=== PATIENT | male | born 1940 | race Caucasian/White ===

== ENCOUNTER 2017-07-05 05:49 | Outpatient (CLI) | payer MEDICARE, OTHER ==
[~2017-07-05] VITALS: Ht 180.3 cm; Wt 90.7 kg
--- NOTE | 2017-07-05 14:13 | History & Physical-Hospitalist ---
HPI History of Present Illness: Date Seen 07/05/17 Attending Physician Alicia Thorne MD PCP Dyllan Harkins MD Referring Physician Date of Admission Home Medications & Allergies Home Medications Reviewed patient Home Medication Reconciliation Form Physical Exam Physical Exam Vital Signs Capillary Refill : ALICIA THORNE MD Jul 05, 2017 14:13
[2017-07-05] MEDS ORDERED: LISI10TA2 PO (15:37)
--- NOTE | 2017-07-05 16:34 | HISTORY AND PHYSICAL ---
DATE OF SERVICE: DATE OF ADMISSION: 07/05/2017. COLONOSCOPY HISTORY AND PHYSICAL REQUESTING PHYSICIAN: Dr. Harkins. HISTORY OF PRESENT ILLNESS: The patient is a 76-year-old white male referred for surveillance colonoscopy due to past history of colon polyps as well as family history of a colon cancer. The index case being his mother, who he believes was diagnosed in her early 70s. He last underwent colonoscopy six years ago, at which time he reports several polyps were removed. He has no past history of cancer with a history of several colonoscopies since the age of 52. He reports that otherwise he feels well and voices no complaints. See below review of systems. PAST MEDICAL HISTORY: Significant for hypertension with no known history of cardiovascular or pulmonary disease. PAST SURGICAL HISTORY: He has had bilateral arthroscopic meniscal repair in the past. 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 He reports now for over 10 years, he has one drink, as I recall, a glass of wine per day, rarely more than that, meeting criteria for moderation. REVIEW OF SYSTEMS: GASTROINTESTINAL: He denies abdominal pain, constipation, diarrhea, dysphagia, hematemesis, heartburn, nausea, vomiting, melena or bright red blood per rectum. RESPIRATORY: He denies dyspnea on exertion, cough, orthopnea, shortness of breath, or hemoptysis. CARDIOVASCULAR: He denies chest pain, presyncope, syncope. History of vascular heart disease or previous history of intervention. Denies palpitations or peripheral edema. GENITOURINARY: He denies dysuria, increased urinary frequency, hematuria, incontinence or discharge. CONSTITUTIONAL: He denies chills, fever, weakness, or change in weight. PHYSICAL EXAMINATION: GENERAL: Reveals a well appearing white male in no acute distress. VITAL SIGNS: Blood pressure was 116/80 with a heart rate of 72 and regular, respiratory rate 16, nonlabored. HEENT: Unremarkable. Sclerae are nonicteric. NECK: Reveals no JVD, adenopathy or bruits. CHEST: Clear. CARDIOVASCULAR: Reveals a regular rate and rhythm without murmur, S3 or S4. ABDOMEN: Soft, supple without mass, organomegaly or tenderness. Bowel sounds are positive in all four quadrants. EXTREMITIES: Reveal no cyanosis, clubbing or edema. ASSESSMENT/PLAN: The patient was set up for surveillance colonoscopy due to family history of colon cancer and a past history of colon polyps on 07/08/2017. Prep instructions with [facility]-prep kit and scheduled for the procedure. He is advised to abstain from aspirin usage until after the procedure and is to hold ibuprofen for 48 hours prior to the procedure. I thank you for the referral of this pleasant gentleman. Job ID: [id number] DocumentID: [id number] Dictated Date: 07/05/2017 14:17:04 Brick Molder Hand Date: 07/05/2017 15:32:36 Dictated By: ALICIA THORNE MD
== END 2017-07-05 15:39 ==
LOC: PREOP 05:49
PROVIDERS: ATTEND Internal Medicine
DX: Z01.818 Encounter for other preprocedural examination (principal); Z86.010 Personal history of colon polyps; Z80.0 Family history of malignant neoplasm of digestive organs

== ENCOUNTER 2017-07-08 07:24 | Day surgery (SDC) | payer MEDICARE, OTHER ==
--- NOTE | 2017-07-05 16:34 | HISTORY AND PHYSICAL ---
DATE OF SERVICE: DATE OF ADMISSION: 07/08/2017. COLONOSCOPY HISTORY AND PHYSICAL REQUESTING PHYSICIAN: Dr. Harkins. HISTORY OF PRESENT ILLNESS: The patient is a 76-year-old white male referred for surveillance colonoscopy due to past history of colon polyps as well as family history of a colon cancer. The index case being his mother, who he believes was diagnosed in her early 70s. He last underwent colonoscopy six years ago, at which time he reports several polyps were removed. He has no past history of cancer with a history of several colonoscopies since the age of 52. He reports that otherwise he feels well and voices no complaints. See below review of systems. PAST MEDICAL HISTORY: Significant for hypertension with no known history of cardiovascular or pulmonary disease. PAST SURGICAL HISTORY: He has had bilateral arthroscopic meniscal repair in the past. 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 He reports now for over 10 years, he has one drink, as I recall, a glass of wine per day, rarely more than that, meeting criteria for moderation. REVIEW OF SYSTEMS: GASTROINTESTINAL: He denies abdominal pain, constipation, diarrhea, dysphagia, hematemesis, heartburn, nausea, vomiting, melena or bright red blood per rectum. RESPIRATORY: He denies dyspnea on exertion, cough, orthopnea, shortness of breath, or hemoptysis. CARDIOVASCULAR: He denies chest pain, presyncope, syncope. History of vascular heart disease or previous history of intervention. Denies palpitations or peripheral edema. GENITOURINARY: He denies dysuria, increased urinary frequency, hematuria, incontinence or discharge. CONSTITUTIONAL: He denies chills, fever, weakness, or change in weight. PHYSICAL EXAMINATION: GENERAL: Reveals a well appearing white male in no acute distress. VITAL SIGNS: Blood pressure was 116/80 with a heart rate of 72 and regular, respiratory rate 16, nonlabored. HEENT: Unremarkable. Sclerae are nonicteric. NECK: Reveals no JVD, adenopathy or bruits. CHEST: Clear. CARDIOVASCULAR: Reveals a regular rate and rhythm without murmur, S3 or S4. ABDOMEN: Soft, supple without mass, organomegaly or tenderness. Bowel sounds are positive in all four quadrants. EXTREMITIES: Reveal no cyanosis, clubbing or edema. ASSESSMENT/PLAN: The patient was set up for surveillance colonoscopy due to family history of colon cancer and a past history of colon polyps on 07/08/2017. Prep instructions with [facility]-prep kit given and colonoscopy scheduled. He is advised to abstain from aspirin usage until after the procedure and is to hold ibuprofen for 48 hours prior to the procedure. I thank you for the referral of this pleasant gentleman. Job ID: [id number] DocumentID: [id number] Dictated Date: 07/05/2017 14:17:04 Mannequin Molder Date: 07/05/2017 15:32:36 Dictated By: ALICIA THORNE MD [facility]
[~2017-07-08] VITALS: Ht 180.3 cm; Wt 90.7 kg
[~2017-07-08 07:24] MED LIST: LISI10TA2 PO
[2017-07-08 07:35] VITALS: BP 131/111
[2017-07-08] MEDS ORDERED: MIDAZOLAM 2 MG/2 ML (VERSED) VIAL IVP PRN (07:45)
[2017-07-08] MEDS ORDERED: LIDOCAINE JELLY 2% (XYLOCAINE) 5 ML TUBE MM PRN (07:45)
[2017-07-08] MEDS ORDERED: 1/2 NS IV SOLUTION 1,000 ML IV PRN (07:45)
--- NOTE | 2017-07-08 07:58 | Pre-Op Note & Conscious Sedat ---
Pre-Operative Progress Note H&P Reviewed The H&P was reviewed, patient examined and no changes noted. Date H&P Reviewed: Jul 08, 2017 Time H&P Reviewed: 07:58 Conscious Sedation Pre-Proced ASA Class: 2 Airway Mallampati Classification: ([place] appropriate class) I. II. III, IV Lungs Heart ASA score ASA 1: a normal healthy patient ASA 2: a patient with a mild systemic disease (mid diabetes, controlled hypertension, obesity ASA 3: a patient with a severe systemic disease that limits activity (angina , COPD, prior Myocardial infarction) ASA 4: a patient with an incapacitating disease that is a constant threat to life (CHF, renal failure) ASA 5: a moribund patient not expected to survive 24 hrs. (ruptured aneurysm) ASA 6: a declared brain patient whose organs are being harvested. For emergent operations, add the letter E after the classification Grade 2 Sedation Plan: Analgesia, Amnesia, Plan communicated to team members, Discussed options with patient/fam, Discussed risks with patient/fam Note The patient is an appropriate candidate to undergo the planned procedure, sedation, and anesthesia. The patient immediately re-assessed prior to indication. ALICIA THORNE MD Jul 08, 2017 07:58
[2017-07-08] MEDS: fentaNYL INJECTION 100 MCG/2 ML AMP IVP PRN ×2 (08:40→08:53)
[2017-07-08] MEDS ORDERED: MIDAZOLAM 2 MG/2 ML (VERSED) VIAL ONE ×2 (09:21→09:22)
[2017-07-08 09:45] VITALS: BP 132/90
[2017-07-08 10:05] VITALS: BP 136/94
--- NOTE | 2017-07-08 14:55 | OPERATIVE REPORT ---
DATE OF SERVICE: COLONOSCOPY SUMMARY The patient underwent diagnostic colonoscopy due to past history of colon cancer and a family history of colon polyps and due to past history of colon polyps and a family history of colon cancer. DESCRIPTION OF PROCEDURE: The patient was placed in the left lateral decubitus position. Prior to undergoing colonoscopy, digital rectal evaluation was performed. Anal sphincter tone was normal and the perianal reflexes intact. The prostate is mildly enlarged, anodular and nontender digital inspection. No abnormalities were noted to digital inspection of the anal canal or distal rectal vault. The colonoscope was then inserted into the rectum and under direct visualization advanced to the cecum. The cecum was identified by identification of the ileocecal valve cecal strap. Photographic documentation was obtained. A careful inspection was made as the colonoscope was withdrawn. FINDINGS: There was no evidence for internal or external hemorrhoids. The rectum was unremarkable. Mild diverticular disease was noted confined to the sigmoid colon. Present in the proximal sigmoid colon were two adjacent diminutive polyps, the smaller one was 1 mm in size, larger one 3 to 4 mm. Both were biopsied and cauterized with no blood loss. The descending colon, splenic flexure, transverse colon, hepatic flexure, ascending colon and cecum were unremarkable. ASSESSMENT: Two diminutive proximal sigmoid polyps with benign features were removed via hot forceps with no subsequent blood loss. Mild diverticular disease confined to the sigmoid colon was present without evidence for diverticulitis. Digital rectal evaluation was compatible with mild benign prostatic hypertrophy. No other abnormalities were noted on today's procedure. Considering family history as long as there are no surprises on histopathology report, would abdicating repeat surveillance colonoscopy in 5 years. I thank you for the referral of this pleasant gentleman. Job ID: [id number] DocumentID: [id number] Dictated Date: 07/08/2017 09:25:32 Keeper Helper Date: 07/08/2017 14:55:05 Dictated By: ALICIA THORNE MD [facility]
== END 2017-07-08 10:20 | disposition home or self-care (01) ==
LOC: ENDO 07:24
PROVIDERS: ATTEND Internal Medicine
DX: Z09 Encounter for follow-up examination after completed treatment for conditions other than malignant neoplasm (principal); D12.5 Benign neoplasm of sigmoid colon; K63.5 Polyp of colon; K57.20 Diverticulitis of large intestine with perforation and abscess without bleeding; I10 Essential (primary) hypertension; Z86.010 Personal history of colon polyps; Z80.0 Family history of malignant neoplasm of digestive organs; Z87.891 Personal history of nicotine dependence

== ENCOUNTER 2022-09-06 05:31 | Outpatient (CLI) | payer MEDICARE, OTHER ==
[~2022-09-06] VITALS: Ht 180.3 cm; Wt 93.4 kg
[~2022-09-06 05:31] MED LIST changes: -LISI10TA2 PO; +LISI10TA25 PO
[2022-09-06] MEDS ORDERED: ACET-2650 PO (12:19)
[2022-09-06] MEDS ORDERED: ASPI-1238 PO (12:19)
== END 2022-09-06 12:21 | disposition home or self-care (01) ==
LOC: PREOP 05:31
PROVIDERS: ATTEND Internal Medicine
DX: Z01.818 Encounter for other preprocedural examination (principal)

== ENCOUNTER 2022-09-24 08:19 | Day surgery (SDC) | payer MEDICARE, OTHER ==
--- NOTE | 2022-09-06 07:46 | HISTORY AND PHYSICAL ---
DATE OF SERVICE: 09/10/2022 COLONOSCOPY HISTORY AND PHYSICAL HISTORY OF PRESENT ILLNESS: The patient is a 81-year-old white male referred by Dr. Harkins for surveillance colonoscopy. He has past history of colon polyps, last performed colonoscopy 5 years ago, at which time he had a tubular adenoma removed from the proximal sigmoid colon. He does have family history of colon cancer, the index case is mother who was diagnosed at the age of 70. He denies bowel habit change, abdominal pain, bright red blood per rectum, melena or change in weight and has been feeling well. PAST MEDICAL HISTORY: Significant for hypertension with no known history of cardiovascular or pulmonary disease. He takes a baby aspirin for primary prevention and lisinopril 10 mg daily for hypertension, on no other medication. PAST SURGICAL HISTORY: He has had bilateral arthroscopic meniscal tear repair over 10 years ago. 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 He drinks one glass of wine 5 days a week on average. Rarely more. REVIEW OF SYSTEMS: CONSTITUTIONAL: Denies night sweats, chills, fever, or change in weight. GASTROINTESTINAL: As per HPI. RESPIRATORY: Denies cough, wheezing or shortness of breath. CARDIOVASCULAR: Denies chest pain, orthopnea, PND, pedal edema. PHYSICAL EXAMINATION: GENERAL: Reveals a well-appearing white male younger than his stated age. VITAL SIGNS: Blood pressure 120/80, weight 206 pounds. HEENT: Unremarkable. Sclerae nonicteric. CHEST: Clear to auscultation. CARDIOVASCULAR: Reveals a regular rate and rhythm without significant murmur, S3 or S4. ABDOMEN: Soft, supple without mass, organomegaly, or tenderness. EXTREMITIES: Revealed no cyanosis, clubbing or edema. ASSESSMENT AND PLAN: The patient is being set up for a surveillance colonoscopy due to past history of colon polyps and family history for colon cancer, index case being his mother diagnosed at the age of 70. Prep instructions were given. Questions were answered and electronic medical record was reviewed. I thank you for the referral of this pleasant gentleman. Job ID: [id number] DocumentID: [id number] Dictated Date: 09/02/2022 14:08:47 Crushing Foreman Date: 09/02/2022 14:27:00 Dictated By: ALICIA THORNE MD
[~2022-09-24] VITALS: Ht 180.3 cm; Wt 93.4 kg
[~2022-09-24 08:19] MED LIST changes: +ACET-2650 PO; +ASPI-1238 PO
[2022-09-24] MEDS ORDERED: LACTATED RINGERS 1,000 ML IV STA (08:21)
--- NOTE | 2022-09-24 08:28 | Pre-Op Note & Conscious Sedat ---
Pre-Operative Progress Note Date H&P Reviewed: Sep 24, 2022 Time H&P Reviewed: 08:27 History & Physical: H&P Reviewed, Patient Examed, No changes noted Pre-Op Diagnosis: hx of colon polyps and FH of colon cancer Moderate Sedation PreProcedure ASA Score 2 Airway Lungs Heart ASA score ASA 1: a normal healthy patient ASA 2: a patient with a mild systemic disease (mid diabetes, controlled hypertension, obesity ASA 3: a patient with a severe systemic disease that limits activity (angina, COPD, prior Myocardial infarction) ASA 4: a patient with an incapacitating disease that is a constant threat to life (CHF, renal failure) ASA 5: a moribund patient not expected to survive 24 hrs. (ruptured aneurysm) ASA 6: a declared brain- patient whose organs are being harvested. For emergent operations, add the letter E after the classification Mallampati Classification Grade 2 Sedation Plan Analgesia, Amnesia, Plan communicated to team members, Discussed options with patient/fam, Discussed risks with patient/fam The patient is an appropriate candidate to undergo the planned procedure, sedation, and anesthesia. The patient immediately re-assessed prior to indication. ALICIA HTORNE MD Sep 24, 2022 08:28
[2022-09-24 08:45] VITALS: BP 152/95
[2022-09-24] MEDS ORDERED: PROPOFOL INJECTION 50 ML IV ONE (09:29)
[2022-09-24 10:06] VITALS: BP 124/78
--- NOTE | 2022-09-24 10:09 | Progress Note-Post Operative ---
Post-Procedure Note Physician (s)/Laborer Cement Gun Placing (s) Physician ALICIA THORNE MD Pre-Procedure Diagnosis Pre-Procedure Diagnosis: hx of colon polyps and FH of colon cancer Post-Procedure Diagnosis Post-operative diagnosis: Prior to undergoing colonoscopy digital rectal evaluation was performed. Anal suture tone was normal and the perianal reflexes intact. Prostate is moderately enlarged and nodular on digital inspection. No abnormalities noted on digital inspection of the anal canal or distal rectal vault. The colonoscope was then inserted into the rectum and under direct visualization advanced to the cecum. The cecum was identified by identification of the ileocecal valve and the cecal strap. Photographic documentation was obtained. Careful inspection was made as the colonoscope was withdrawn. Quality the prep was good. Findings: There was no evidence for internal or external hemorrhoids and the rectum was unremarkable. Mild to moderate diverticular disease confined to the sigmoid colon was present without evidence for diverticulitis. A 5 mm sessile mid sigmoid colon polyp adenomatous appearance was noted it was behind a fold and the best I could do was likely biopsy adjacent or possibly on 1 corner of the polyp but cauterized with current undermining the entire base of. There was no subsequent blood loss. A 3 mm sessile polyp was noted in the proximal sigmoid colon at 2 was biopsied and cauterized with no blood loss. The descending colon splenic flexure transverse colon hepatic flexure ascending colon and cecum were unremarkable. A/P 1. 2 benign small adenomatous appearing polyps were removed with locations in the proximal sigmoid and mid sigmoid colon. Mild to moderate diverticular disease was noted confined to the sigmoid colon without evidence of diverticulitis. The patient had mild to moderate BPH on digital evaluation. Considering family history would advocate consideration for repeat screening colonoscopy in 5 years as long as her are no surprises on histopathology report. I thank you for the furl this pleasant gentleman. Sincerely, Alicia Thorne MD. CC: ALICIA Desai MD Sep 24, 2022 10:09
[2022-09-24 10:11] VITALS: BP 125/77
[2022-09-24 10:15] VITALS: BP 132/84
--- NOTE | 2022-09-24 10:20 | Anesthesia-General Post-Op ---
MAC Patient Condition Mental Status/LOC: Same as Preop Cardiovascular: Satisfactory Nausea/Vomiting: Absent Respiratory: Satisfactory Pain: Controlled Complications: Absent Post Op Complications Complications None Follow Up Care/Instructions Patient Instructions None needed. Anesthesiology Discharge Order Discharge Order Patient is doing well, no complaints, stable vital signs, no apparent adverse anesthesia problems. No complications reported per nursing. TIMOTHY FLOWERS CRNA Sep 24, 2022 10:20
[2022-09-24 10:40] VITALS: BP 125/77
--- NOTE | 2022-09-28 13:52 | Physician Query Clarification ---
RAFAELA ORTEGA 09/28/22 1352: [id number] Proc Desc BodyOP Admission Canned Text Admission Date: 09/24/22 Procedures Procedures Performed Body of the Operative/Procedure Report: Please clarify how polyps were removed: 1. cold biopsy 2. hot biopsy forceps 3. other, please specify Plastics Engineering Teacher Note Note From Plastics Engineering Teacher In responding to this query, please exercise your independent professional judgment. The purpose of this communication is to more accurately reflect the complexity of your patients condition. The fact that a question is asked does not imply that any particular answer is desired or expected. Thank you for your timely response to this clarification. Requestors name: Rafaela THIS PHYSICIAN QUERY FORM IS A PERMANENT PART OF THE MEDICAL RECORD ALICIA THORNE MD 09/28/22 1738: [id number] Proc Desc BodyOP Physician Response Details: Detailed desc below Explanation Clinical Findings hot biopsy performed RAFAELA ORTEGA Sep 28, 2022 13:52 ALICIA THORNE MD Sep 28, 2022 17:38
== END 2022-09-24 10:55 | disposition home or self-care (01) ==
LOC: ENDO 08:19
PROVIDERS: ATTEND Internal Medicine
DX: Z12.11 Encounter for screening for malignant neoplasm of colon (principal); K63.5 Polyp of colon; K57.30 Diverticulosis of large intestine without perforation or abscess without bleeding; N40.0 Benign prostatic hyperplasia without lower urinary tract symptoms; Z80.0 Family history of malignant neoplasm of digestive organs; I10 Essential (primary) hypertension; Z79.899 Other long term (current) drug therapy; Z79.82 Long term (current) use of aspirin; Z87.891 Personal history of nicotine dependence
CPT/HCPCS: 88305

== ENCOUNTER 2023-03-01 15:26 | Outpatient (CLI) | payer MEDICARE, OTHER ==
[~2023-03-01] VITALS: Ht 180.3 cm; Wt 90.5 kg
[2023-03-02] MEDS ORDERED: NF-VITD400 PO (10:18)
== END 2023-03-02 10:30 | disposition home or self-care (01) ==
LOC: PREOP 15:26
PROVIDERS: ATTEND Specialist
DX: Z01.818 Encounter for other preprocedural examination (principal)

== ENCOUNTER 2023-03-04 11:12 | Day surgery (SDC) | payer MEDICARE, OTHER ==
[~2023-03-04] VITALS: Ht 180.3 cm; Wt 90.5 kg
[~2023-03-04 11:12] MED LIST changes: +NF-VITD400 PO
[2023-03-04 11:30] VITALS: BP 153/153
[2023-03-04] MEDS: TETRACAINE 0.5% OPHTH SOLN 4 ML BTL (SINGLE DOSE ONLY) OU PRN ×4 (11:43→12:02)
[2023-03-04] MEDS ORDERED: LIDOCAINE PF 1% 2 ML VIAL IR PRN (11:45)
[2023-03-04] MEDS ORDERED: MOXIFLOXACIN OPHTH SOLN 5 MG/ML 0.3 ML SYRINGE OP ONE (11:45)
[2023-03-04] MEDS ORDERED: POVIDONE IODINE OPHTH SOLN 5% 30 ML OP ONE (11:45)
[2023-03-04] MEDS ORDERED: TIMOLOL 0.5% (CATARACTS) 0.3 ML BTL OU PRN (11:45)
[2023-03-04] MEDS: TROPICAMIDE 1% OPH SOLN (MYDRIACYL) 15 ML BTL OP SCH ×3 (11:50→12:02)
[2023-03-04] MEDS: PHENYLEPHRINE 10% OPHTH SOLN 5 ML BTL OU SCH ×3 (11:50→12:02)
--- NOTE | 2023-03-04 12:32 | Ophthalmologist Pre-Op Note ---
Pre-Operative Progress Note H&P Reviewed The H&P was reviewed, patient examined and no changes noted. Date H&P Reviewed: Mar 04, 2023 Time H&P Reviewed: 12:32 Pre-Op Dx Cataract, Left Eye MONTY NEVAREZ MD Mar 04, 2023 12:32
[2023-03-04] MEDS ORDERED: MIDAZOLAM INJ 2 MG/2 ML VIAL ONE (12:34)
--- NOTE | 2023-03-04 12:46 | Ophthalmology Operative Report ---
Cataract removal/placement IOL PREOPERATIVE DIAGNOSIS: Cataract Left Eye POSTOPERATIVE DIAGNOSIS: Cataract Left Eye PROCEDURE: Cataract removal and placement of posterior chamber implant, left eye SURGEON: Jose Luis Nevarez ANESTHESIA: Topical with sedation COMPLICATIONS: None ESTIMATED BLOOD LOSS: Minimal DESCRIPTION OF PROCEDURE: After proper informed consent was obtained, the patient, a 82 male, was taken to the Operating Room and the left eye was anesthetized with tetracaine. The left eye was then prepped and draped in the usual manner. A wire lid speculum was placed. A paracentesis was made at the left hand position. Preservative free lidocaine was injected into the anterior chamber followed by viscoelastic. A clear corneal incision was made in the temporal position. A capsulorrhexis was preformed and the central nuclear and cortical material were removed. The posterior capsule was polished and an Gutierrez 18.5 [id number] was placed into the capsular bag. The residual viscoelastic was aspirated and balanced saline solution was injected into the anterior chamber. Moxifloxacin was injected into the anterior chamber. The wound was checked and found to be water tight. The patient tolerated the procedure well without complications. JOSE LUIS NEVAREZ MD Mar 04, 2023 12:46
[2023-03-04 12:49] VITALS: BP 152/96
--- NOTE | 2023-03-04 13:00 | Anesthesia-General Post-Op ---
MAC Patient Condition Mental Status/LOC: Same as Preop Cardiovascular: Satisfactory Nausea/Vomiting: Absent Respiratory: Satisfactory Pain: Controlled Complications: Absent Post Op Complications Complications None Follow Up Care/Instructions Patient Instructions None needed. Anesthesiology Discharge Order Discharge Order Patient is doing well, no complaints, stable vital signs, no apparent adverse anesthesia problems. No complications reported per nursing. RAY MCELROY CRNA Mar 04, 2023 12:59
== END 2023-03-04 12:52 | disposition home or self-care (01) ==
LOC: SDC 11:12
PROVIDERS: ATTEND Specialist
DX: H25.9 Unspecified age-related cataract (principal); Z87.891 Personal history of nicotine dependence; Z85.828 Personal history of other malignant neoplasm of skin
CPT/HCPCS: 66984; V2632

== ENCOUNTER 2023-03-08 10:09 | Outpatient (CLI) | payer MEDICARE, OTHER | END 2023-03-08 16:10 | disposition home or self-care (01) | LOC: PREOP 10:09 | PROVIDERS: ATTEND Specialist | DX: Z01.818 Encounter for other preprocedural examination (principal) ==